=== PATIENT | female | born 1945 | race Caucasian/White ===

== ENCOUNTER → 2017-05-06 | Outpatient (CLI) | payer MEDICARE ==
[~2017-05-06] MED LIST: CEPH-460 PO; CHOL1CAP6 PO; LORA-392 PO; RED600TA PO; ST J81CH PO
--- NOTE | 2017-05-07 10:45 | RSPPFT ---
DATE OF PROCEDURE: 05/06/17 COMMENTS: Spirometry with FVC of 2.7 predicted 2.7, FEV1 of 1.7 predicted 2.0, FEV1/FVC ratio at 62% predicted 81%. Air trapping is present with RV at 2.7 predicted 2.2. DLCO is 71% of predicted. IMPRESSION: On the basis of the above, patient has an obstructive lung defect with no response to acutely inhaled bronchodilator except at the level of the "small airways". Significant air trapping is present. DLCO is decreased.
== END ==
LOC: HRSP 08:48
PROVIDERS: ATTEND Internal Medicine Pulmonary Disease
DX: J44.9 Chronic obstructive pulmonary disease, unspecified (principal)
CPT/HCPCS: 94060; 94726; 94729